=== PATIENT | female | born 1960 | race Caucasian/White ===

== ENCOUNTER 2022-06-27 13:40 | Observation (INO) ==
[2022-06-27 14:13] LABS: ABS Basophils 0.1 10^3/ul (0-0.2); ABS Eosinophils 0.2 10^3/ul (0-0.6); ABS Monocytes 0.4 10^3/ul (0-0.8); ABS Neutrophils 3.2 10^3/ul (1.5-7.7); Eosinophil % 4.3 %; Hematocrit 46 % (35-47); Hemoglobin 14.8 g/dL (12.0-16.0); Mean Corpuscular HGB Conc 32 g/dL (31-36); Mean Corpuscular Hemoglobin 30 pg (27-31); Mean Corpuscular Volume 93 fL (80-97); Mean Platelet Volume 9.3 fL (7.4-10.4); Nucleated Red Blood Cells % 0.1; Platelet Count 277 10^3/uL (150-450); Red Blood Count 4.95 10^6 /uL (3.70-4.87); Red Cell Distribution Width 13 % (10-15); White Blood Count 5.8 10^3/uL (3.5-10.8)
[2022-06-27 14:20] LABS: INR 1.03 (0.88-1.18)
[2022-06-27 14:42] LABS: Albumin 4.5 g/dL (3.2-5.2); Albumin/Globulin Ratio 1.8 (1-3); Calcium 9.7 mg/dL (8.6-10.3); Globulin 2.5 g/dL (2-4); Potassium 3.9 mmol/L (3.5-5.0); Total Bilirubin 0.6 mg/dL (0.2-1.0); eGFR CKD-EPI 68.6 (>60)
[2022-06-27 15:42] LABS: High Sensitivity Troponin 1 Hr 4 pg/mL (<15)
[2022-06-28 02:25] LABS: Magnesium 1.9 mg/dL (1.9-2.7)
[2022-06-28 12:04] VITALS: BP 125/83
== END 2022-06-28 14:15 | disposition home or self-care (01) ==
LOC: ED 13:40 → EDHOLD 13:40 → SUATTDRO 23:51 → EDHOLD 06-28 02:36 → MEDTELE 06-28 02:37
PROVIDERS: ADMIT Internal Medicine; ATTEND Internal Medicine Hematology & Oncology